=== PATIENT | male | born 1960 | race Caucasian/White ===

== ENCOUNTER 2016-08-03 20:32 | Inpatient (IN) | payer OTHER ==
[2016-08-03] MEDS ORDERED: Nitroglycerin TAB 0.4 MG* 0.4 MG TAB SL PRN (20:47)
[2016-08-03] MEDS ORDERED: Aspirin Low Dose CHEW TAB* 81 MG PO ONE (20:47)
[2016-08-03] MEDS ORDERED: Nitroglycerin TAB 0.4 MG* 0.4 MG TAB ONE (20:52)
[2016-08-03] MEDS ORDERED: Metoprolol Tartrate TAB* 25 MG PO ONE (20:58)
[2016-08-03] MEDS ORDERED: nitroGLYCERIN DRIP* 25,000 MCG in PREMIX* 0 ML IV ONE (21:08)
[2016-08-03 21:15] LABS: Hematocrit 44 % (42-52); Mean Corpuscular HGB Conc 34 g/dl (31-36); Mean Corpuscular Hemoglobin 31 pg (27-31); Mean Corpuscular Volume 90 fL (80-94); Mean Platelet Volume 8 um3 (7.4-10.4); Red Cell Distribution Width 13 % (10.5-15); White Blood Count 9.7 10^3/ul (3.5-10.8)
[2016-08-03] MEDS ORDERED: Heparin DRIP 25,000 UNITS(*) 25,000 UNITS/500 ML BAG IVPB SCH (21:15)
--- NOTE | 2016-08-03 21:20 | RAD ---
HISTORY: Chest pain COMPARISONS: None VIEWS:1: Single frontal portable view of the chest at 9:11 PM FINDINGS: LINES AND TUBES: None. CARDIOMEDIASTINAL SILHOUETTE: The cardiomediastinal silhouette is normal for portable technique. PLEURA: The costophrenic angles are sharp. No pleural abnormalities are noted. LUNG PARENCHYMA: The lungs are clear. ABDOMEN: The upper abdomen is clear. There is no subphrenic gas. BONES AND SOFT TISSUES: No bone or soft tissue abnormalities are noted. IMPRESSION: NO ACTIVE CARDIOPULMONARY DISEASE.
[2016-08-03] MEDS ORDERED: nitroGLYCERIN DRIP* 250 ML ONE (21:28)
[2016-08-03 21:31] LABS: Albumin 4.1 g/dL (3.2-5.2); BUN/Creatinine Ratio 18.6 (8-20); Calcium 9.5 mg/dL (8.6-10.3); EGFR African American 97.9 (>60); EGFR Non-African American 76.1 (>60); Globulin 3.3 g/dL (2-4); Potassium 3.4 mmol/L (3.5-5.0); Total Bilirubin 0.6 mg/dL (0.2-1.0); Total Protein 7.4 g/dL (6.4-8.9)
[2016-08-03] MEDS ORDERED: Heparin DRIP 25,000 UNITS(*) 25,000 UNITS/500 ML BAG ONE (21:31)
[2016-08-03] MEDS ORDERED: Heparin for STEMI(*) 5,000 UNITS/ML 1 ML VIAL IV ONE (21:32)
[2016-08-03 21:37] LABS: Troponin I 1.23 ng/mL (<0.04)
[2016-08-03] MEDS ORDERED: Heparin VIAL(*) 5000 UNITS/ML VIAL (FIVE THOUSAND) IV SCH (22:00)
[2016-08-03] MEDS ORDERED: Metoprolol Tartrate TAB* 25 MG PO SCH ×2 (22:00→23:00)
[2016-08-03] MEDS ORDERED: Ondansetron INJ* 2 MG/ML VIAL IV PRN (22:25)
[2016-08-03 22:53] LABS: Urine Bilirubin Negative (Negative); Urine Glucose Negative (Negative); Urine Nitrite Negative (Negative)
[2016-08-03 23:00] LABS: Albumin 3.7 g/dL (3.2-5.2); BUN/Creatinine Ratio 22.7 (8-20); EGFR African American 116.1 (>60); EGFR Non-African American 90.2 (>60); Globulin 3.1 g/dL (2-4); HDL Cholesterol 37.4 mg/dL; Potassium 3.5 mmol/L (3.5-5.0); Total Bilirubin 0.5 mg/dL (0.2-1.0); Total Protein 6.8 g/dL (6.4-8.9)
[2016-08-03 23:06] LABS: Troponin I 1.77 ng/mL (<0.04)
[2016-08-03] MEDS: Atorvastatin* 80 MG TAB PO SCH (23:55)
[2016-08-04 05:48] LABS: Hematocrit 39 % (42-52); Hemoglobin 13.2 g/dl (14.0-18.0); Mean Corpuscular HGB Conc 34 g/dl (31-36); Mean Corpuscular Hemoglobin 31 pg (27-31); Mean Corpuscular Volume 91 fL (80-94); Mean Platelet Volume 8 um3 (7.4-10.4); Red Blood Count 4.31 10^6/ul (4.0-5.4); Red Cell Distribution Width 13 % (10.5-15); White Blood Count 9.4 10^3/ul (3.5-10.8)
[2016-08-04 06:07] LABS: EGFR African American 113.1 (>60); EGFR Non-African American 87.9 (>60); HDL Cholesterol 36.6 mg/dL
[2016-08-04 06:15] LABS: Troponin I 5.07 ng/mL (<0.04)
--- NOTE | 2016-08-04 06:42 | HP ---
HISTORY AND PHYSICAL: DATE OF ADMISSION: 08/03/16 CHIEF COMPLAINT: Chest pain. HISTORY OF PRESENT ILLNESS: The patient is a 56-year-old gentleman who presented to [facility] with chief complaint of chest pain. He said Saturday, he was doing fine, did a bike ride for 40 minutes and was completely asymptomatic. However, Saturday, he just started feeling achy all over with a fever, but at that point had no chest pain or shortness of breath. though [place] the [place], he felt discomfort in his chest. The pain did not increase with any movement and it also went up to his shoulder and his left forearm. He went to a movie and by the time he got to the movie, the pain was resolved. He had no associated shortness of breath but he did have some nausea but no vomiting. He had some mild sweating with no palpitations. He went home but was very comfortable at night as per his significant other. He did not sleep much all night. In the morning, he developed chest pain again. He had it for hours and the pain increased about 4- 5/10 in severity, finally came to the ED. In the ED, the patient was shown to have an abnormal EKG which resolved with nitro, and an elevated troponin. He has a history of hypertension, hyperlipidemia, allergies, impaired glucose tolerance, and ulcerative colitis. MEDICATIONS: Include: 1. Lisinopril 20 mg daily. 2. Lipitor 10 mg daily. ALLERGIES: He has no known drug allergies. FAMILY HISTORY: Mother at 57 of an [place]. Father alive at 84, has CVA, diabetes mellitus, hypertension, and valve replacement. SOCIAL HISTORY: No tobacco. Wine with dinner. No recreational drug use. 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 He is not , but has a domestic partner, Frandy Jackson, is his healthcare proxy. He has 3 children. REVIEW OF SYSTEMS: A 14-point review of systems was completed with the patient. All pertinent positives and negatives are in the history of present illness, otherwise is negative. PHYSICAL EXAMINATION GENERAL: Pleasant gentleman, lying in bed, in no acute distress. VITAL SIGNS: Temperature is 98.4 degrees, heart rate is 82 beats per minute, pulse ox 94%, blood pressure 135/90, respiratory rate 18 breaths per minute. HEENT: Normocephalic, atraumatic. Pupils are equal, round, and reactive to light. Moist mucous membranes. NECK: Supple. No JVD, bruits, palpable thyroid, or lymphadenopathy. CHEST: Clear to auscultation and percussion bilaterally. CARDIOVASCULAR: S1, S2 appreciated. Regular rate and rhythm. ABDOMEN: Positive bowel sounds in all 4 quadrants. Soft, nontender, nondistended. EXTREMITIES: No cyanosis, clubbing, or edema. +2 peripheral pulses bilaterally. NEURO: Alert and oriented x3. Moves all extremities. SKIN: No rashes or abnormalities. DIAGNOSTIC STUDIES/LAB DATA: White count 9.7, hemoglobin 15, hematocrit 44, his platelets are 233. His sodium is 137, potassium 3.4, chloride 103, CO2 29, BUN 19, creat 1.02, his glucose is 167. His troponin is 1.23. His INR is 0.93. His urinalysis is unremarkable. His EKG showed initially normal sinus rhythm at 84 beats per minute with ST elevations in the inferior leads and some mild ST depressions in I and aVL and V2 through V6. After receiving nitro, his pain was much better and the ST depressions and ST elevations resolved. Chest x-ray, 08/03/16, impression: No active cardiopulmonary disease. ASSESSMENT AND PLAN: 1. Non-ST elevation myocardial infarction. Cardiology was called he did have some ST changes initially and that resolved. He was doing better, and felt since they resolved, it would be called a non-ST elevation myocardial infarction. The patient was admitted to the ICU on both nitro drip and heparin drip and his pain is essentially gone. We will continue to cycle his troponins. Cardiology will see him in the morning for likely cardiac catheterization. We will him start on beta minerva as well, metoprolol, aspirin 81 mg, and continue his other medications. We will increase his Lipitor to 80 mg. 2. Hypertension. Borderline control. Continue lisinopril and metoprolol now. 3. Hyperlipidemia. As above, I have increased his atorvastatin to 80 mg. 4. DVT prophylaxis, he will be on heparin drip. 5. The patient is a full code. TIME SPENT: Over 75 minutes was spent on this H and P, more than 40 minutes of which was spent in direct [id number] contact with the patient in evaluation, physical exam, counseling, and coordination of care. CC: Dr. Haney; Dr. Miranda* [id number]/[facility] #: [id number] [facility] HOSPITALShauna
[2016-08-04] MEDS ORDERED: Lisinopril TAB* 10 MG PO SCH (09:00)
[2016-08-04] MEDS ORDERED: Metoprolol Tartrate TAB* 25 MG PO SCH ×2 (09:00→14:00)
[2016-08-04] MEDS ORDERED: Aspirin EC Low Dose* 81 MG TAB.EC PO SCH (09:00)
[2016-08-04] MEDS ORDERED: Heparin(*) 1000 UNIT/ML 10 ML VIAL CATH LAB IV ONE (11:08)
[2016-08-04] MEDS ORDERED: Midazolam* 1 MG/ML 5 ML VIAL (5 MG) ONE (11:08)
[2016-08-04] MEDS ORDERED: Iohexol 350 (CONTRAST) 200 ML MDV IV ONE (11:08)
[2016-08-04] MEDS ORDERED: VERAPAMIL 2.5 MG/ML 4 ML VIAL ONE (11:08)
[2016-08-04] MEDS ORDERED: fentaNYL* 50 MCG/ML 2 ML VIAL (100 MCG VIAL) ONE (11:08)
[2016-08-04] MEDS ORDERED: Lidocaine 1% INJ* 10 MG/ML 30 ML SDV ONE (11:09)
[2016-08-04] MEDS ORDERED: Heparin 2 UNITS/ML IVPREMIX* 2,000 ML IV ONE (11:09)
[2016-08-04] MEDS ORDERED: nitroGLYCERIN DRIP* 250 ML ONE (11:09)
[2016-08-04] MEDS ORDERED: NS 0.9% 1000 ML* 1,000 ML IV SCH ×2 (12:45→13:45)
[2016-08-04] MEDS ORDERED: Enoxaparin(*) 100 MG/ML SYR SUBCUT SCH (14:00)
[2016-08-04] MEDS ORDERED: amLODIPine TAB* 5 MG PO SCH (14:00)
[2016-08-04] MEDS ORDERED: Nitroglycerin 0.4 MG/HR PATCH* (10 MG) TRANSDERM SCH (14:00)
--- NOTE | 2016-08-04 14:48 | PN ---
Subjective Date of Service: 08/04/16 Interval History: Mr. Moreno states that he feels fine this afternoon though he is a bit surprised by the sudden need for open heart surgery. He denies chest pain, SOB , nausea, or abdominal pain. Objective Active Medications: Amlodipine Besylate (Norvasc Tab*) 5 mg PO DAILY [facility] Aspirin (Aspirin Ec Low Dose*) 81 mg PO DAILY [facility] Atorvastatin Calcium (Lipitor*) 80 mg PO 1700 [facility] Enoxaparin Sodium (Lovenox(*)) 100 mg SUBCUT Q12H [facility] Sodium Chloride (Ns 0.9% 1000 Ml*) 1,000 mls @ 100 mls/hr IV .per rate [facility] Lisinopril (Prinivil Tab*) 20 mg PO DAILY [facility] Metoprolol Tartrate (Lopressor Tab*) 12.5 mg PO Q8H [facility] Nitroglycerin (Nitroglycerin 10 Mg Patch*) 1 patch TRANSDERM DAILY [facility] Ondansetron HCl (Zofran Inj*) 4 mg IV Q4H PRN Pharmacy Profile Note (Nitro Patch/Oint Remove*) 1 note PATCH OFF 2100 [facility] Vital Signs 08/03/16 08/03/16 08/03/16 22:30 23:00 23:01 Temperature 98.4 F Pulse Rate 81 82 82 Respiratory 16 Rate Blood Pressure 126/78 132/79 (mmHg) O2 Sat by Pulse 94 96 95 Oximetry 08/03/16 08/03/16 08/03/16 23:05 23:15 23:30 Temperature Pulse Rate 74 70 Respiratory 17 16 Rate Blood Pressure 132/79 127/79 116/70 (mmHg) O2 Sat by Pulse 96 95 Oximetry 08/03/16 08/04/16 08/04/16 23:47 00:00 00:01 Temperature Pulse Rate 53 60 Respiratory 14 18 18 Rate Blood Pressure 93/61 110/76 (mmHg) O2 Sat by Pulse 97 96 Oximetry 08/04/16 08/04/16 08/04/16 00:13 00:30 01:00 Temperature Pulse Rate 58 57 54 Respiratory 16 17 13 Rate Blood Pressure 110/76 107/68 105/64 (mmHg) O2 Sat by Pulse 97 95 97 Oximetry 08/04/16 08/04/16 08/04/16 01:30 02:00 02:30 Temperature Pulse Rate 49 50 50 Respiratory 16 15 15 Rate Blood Pressure 100/62 96/65 98/60 (mmHg) O2 Sat by Pulse 96 96 97 Oximetry 08/04/16 08/04/16 08/04/16 03:00 03:30 04:00 Temperature Pulse Rate 50 49 50 Respiratory 16 15 Rate Blood Pressure 95/60 91/58 90/55 (mmHg) O2 Sat by Pulse 96 95 95 Oximetry 08/04/16 08/04/16 08/04/16 04:30 05:00 05:30 Temperature 98.1 F Pulse Rate 51 50 50 Respiratory 10 17 Rate Blood Pressure 88/58 93/59 95/57 (mmHg) O2 Sat by Pulse 96 97 96 Oximetry 08/04/16 08/04/16 08/04/16 05:46 06:00 06:30 Temperature Pulse Rate 50 55 Respiratory 18 14 15 Rate Blood Pressure 95/64 94/61 (mmHg) O2 Sat by Pulse 97 97 Oximetry 08/04/16 08/04/16 08/04/16 07:00 07:30 07:35 Temperature 99.1 F Pulse Rate 73 64 Respiratory 17 18 Rate Blood Pressure 104/64 111/68 (mmHg) O2 Sat by Pulse 95 96 Oximetry 08/04/16 08/04/16 08/04/16 08:00 08:30 08:37 Temperature Pulse Rate 66 63 59 Respiratory 12 16 17 Rate Blood Pressure 111/67 109/69 110/70 (mmHg) O2 Sat by Pulse 96 96 95 Oximetry 08/04/16 08/04/16 08/04/16 09:00 10:00 10:30 Temperature Pulse Rate 65 53 54 Respiratory 15 13 16 Rate Blood Pressure 107/69 105/68 108/65 (mmHg) O2 Sat by Pulse 96 97 96 Oximetry 08/04/16 08/04/16 08/04/16 11:00 11:30 12:00 Temperature 99.4 F Pulse Rate 56 Respiratory 17 18 15 Rate Blood Pressure 109/66 120/72 109/71 (mmHg) O2 Sat by Pulse 95 Oximetry 08/04/16 08/04/16 08/04/16 12:30 12:41 13:38 Temperature Pulse Rate Respiratory 15 17 Rate Blood Pressure 120/72 109/65 (mmHg) O2 Sat by Pulse Oximetry 08/04/16 08/04/16 08/04/16 13:39 13:45 13:46 Temperature 99.5 F Pulse Rate 68 Respiratory 14 19 16 Rate Blood Pressure 105/74 (mmHg) O2 Sat by Pulse 92 Oximetry 08/04/16 08/04/16 08/04/16 13:59 14:00 14:15 Temperature 99.4 F 98 F Pulse Rate 64 Respiratory 16 19 Rate Blood Pressure 110/69 (mmHg) O2 Sat by Pulse 93 Oximetry 08/04/16 14:30 Temperature 98 F Pulse Rate Respiratory Rate Blood Pressure (mmHg) O2 Sat by Pulse Oximetry Oxygen Devices in Use Now: None Appearance: Male lying in bed in NAD Respiratory: Symmetrical Chest Expansion and Respiratory Effort, Clear to Auscultation Cardiovascular: NL Sounds; No Murmurs; No JVD, No Edema Abdominal: NL Sounds; No Tenderness; No Distention Extremities: No Edema Skin: No Rash or Ulcers Neurological: Alert and Oriented x 3, NL Muscle Strength and Tone Nutrition: Taking PO's Result Diagrams: 08/04/16 05:40 08/04/16 05:40 Microbiology and Other Data: Microbiology 08/03/16 23:35 Nasal Screen MRSA (PCR)([facility]) - Final Nasal Mrsa Negative Assess/Plan/Problems-Billing Assessment: /Mr. Moreno is a 56 yo male with a PMH of ulcerative colitis, htn, and hld who was admitted on 08/03/16 with NSTEMI. - Patient Problems (1) NSTEMI (non-ST elevated myocardial infarction) Comment: Trops peaked at 5.07. Cardiac cath found three vessel disease. Plan for transfer to [facility] for CABG. Continue aspirin, atorvastatin, metoprolol and lovenox. Status and Disposition: Inpatient. Transfer to [facility] for anticipated CABG.
[2016-08-04] MEDS: Atorvastatin* 80 MG TAB PO SCH (16:49)
[2016-08-04] MEDS ORDERED: nitroGLYCERIN DRIP* 25,000 MCG in PREMIX* 0 ML IV SCH (17:00)
[2016-08-04 17:22] VITALS: BP 113/70
--- NOTE | 2016-08-04 17:52 | DS ---
TRANSFER SUMMARY: DATE OF ADMISSION: 08/03/16 DATE OF DISCHARGE: 08/04/16 PRIMARY CARE PHYSICIAN: Dr. Haney. ATTENDING PHYSICIAN: Dr. Shabana Christopher* (dictation provided by Pau Christiansen NP) . PRIMARY DIAGNOSIS: Non ST-elevation myocardial infarction with 3-vessel coronary artery disease. SECONDARY DIAGNOSES: 1. Hypertension. 2. Hyperlipidemia. 3. Ulcerative colitis. MEDICATIONS AT THE TIME OF DISCHARGE: 1. Aspirin 81 mg p.o. daily. 2. Atorvastatin 80 mg p.o. daily. 3. Lovenox 100 mg subcutaneously q.12 hours. 4. Lisinopril 20 mg p.o. daily. 5. Metoprolol tartrate 12.5 mg p.o. q.8 hours. 6. Nitroglycerin patch 0.4 mg an hour. 7. Amlodipine 5 mg p.o. daily. HOSPITAL COURSE: Mr. Moreno is a 56-year-old male with past medical history of hypertension and hyperlipidemia, who presents to the hospital on 08/03/16 with concern for chest pain. Please see the dictated H and P from Sabino Reed MD for complete details. In brief, the patient had had some very mild discomfort on the left side of the chest associated with some shortness of breath while walking on the [employer]. This seemed to resolve with rest. The following day, he again noticed that he was having discomfort with activity. He has a very strong positive family history with his mother having an VT at 57. He came to the emergency room for evaluation and was found to have a first troponin of 1.23. His EKG showed ST depressions in V2, V3, V4, V5, and V6. The patient was admitted for non-ST elevation VT. Mr. Moreno had repeat troponins that peaked at 5.07. He went on for cardiac catheterization with Parvin Miranda MD, who found that the patient had severe multivessel coronary artery disease. Dr. Miranda spoken with Dr. Arevalo at [facility] and plans are for the patient to be transferred for likely coronary artery bypass graft. Mr. Moreno is stable at this point. He has no chest pain. He is resting comfortably in the bed. His vitals are stable. DISPOSITION: To [facility]. ACTIVITIES: Bed rest. FOLLOWUP PLANS: Please followup with Dr. Haney when you return from [facility]. TIME SPENT: Approximately, 40 minutes was spent on discharge of this patient; more than half the time was spent with the patient at the bedside reviewing the events leading up to this hospitalization, performing the physical examination, and reviewing my plan of care. PAU CHRISTIANSEN NP CC: Dr. Haney* [id number]/[facility] #: [id number] VINCE
[2016-08-04] MEDS ORDERED: Nitro Patch/OINT Remove PATCH OFF SCH (21:00)
--- NOTE | 2016-08-04 22:59 | CONS ---
CC: Dr. Haney, Dr. Miranda; Dr. Arevalo, [facility] INTERVENTIONAL CARDIOLOGY CONSULT NOTE: DATE OF CONSULT: 08/04/16 PRIMARY CARE PHYSICIAN: Dr. Haney. HISTORY OF PRESENT ILLNESS: A 56-year-old male presenting with non-ST elevation infarct. He is an excellent historian, has a strong family history of coronary artery disease, but has been a symptomatic. He has been cycling. A few days ago while walking on the [employer], he had precordial c hest tightness with radiation to the left shoulder, which resolved with rest, that was his first epi sode. Subsequently, he has had fairly predictable class 2 to 3 angina. Yesterday, he had an episod e at rest that resolved in the ER with IV nitroglycerin after sublingual nitroglycerin. He has been pain free here, has no history of heart failure symptoms, palpitations, or syncope. He has not been on aspirin regularly. 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 PREHOSPITAL MEDICATIONS: 1. Lisinopril 20 mg daily. 2. Lipitor 10 mg daily. ALLERGIES: None to medications. FAMILY HISTORY: Positive for premature coronary disease. 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 He has a significant other. He is a nonsmoker. REVIEW OF SYSTEMS: General: No weight loss. No fevers. FILBERT GROWER: No history of TIA or CVA. GI: No peptic ulcer disease or bleeding. Circulatory: No claudication. Remainder all negative. PHYSICAL EXAMINATION: BP 109/66, heart rate in the 60 to 70s, sinus rhythm, no ectopy. His lungs a re clear to percussion and auscultation. Neck: JVP and carotids are normal. No bruits. HEENT is unremarkable without xanthelasma, scleral injection, or jaundice. EOMs normal. Cranial nerves kumar sly intact. Cardiac Exam: Chest wall is nontender, normal heart sounds, no gallop, no murmur, no ru b. Abdomen: Soft, nontender. No bruit, aorta is not palpable. Liver is not palpable, he has no b ruits. Femoral pulses are 2+. Extremities: Radial pulses 2+, pedal pulses 2+. He has no cyanosis , clubbing, or edema. Skin is warm and perfused. DIAGNOSTIC STUDIES/LABS: Troponin is 1.23, 1.77, 5.07, not yet peaked. BMP is notable for random b lood sugar of 167. CBC is normal. EKG on presentation showed inferolateral ST depression, which re solved with medical treatment. EKG this morning shows minimal T-wave flattening inferolaterally. H e has nondiagnostic inferior Q-waves, relatively early transition V1, V2. Chest x-ray by my review, portable film shows normal heart size, no heart failure, no infiltrate. IMPRESSION: 1. Inferolateral non-ST elevation infarct, he stabilized with medical therapy. He is undergoing ca theterization this morning. We have discussed the procedure, the potential need for revascularizati on with stenting, procedure risks. 2. Hyperglycemia. Hemoglobin A1c is pending. 3. Hypertension. Controlled 4. Hyperlipidemia. He is on low dose Lipitor, with an LDL on admission of 128. He has been started on high dose Lipitor. 5. History of ulcerative colitis. Historically quiescent for many years. Thanks for the consultation. I will follow with you as needed. [id number]/[facility] #: [id number]
== END 2016-08-04 18:18 | disposition short-term general hospital (02) | DRG 282 ==
LOC: ED 20:32 → ICU 22:25
PROVIDERS: ADMIT Internal Medicine; ATTEND Hospitalist
PROC: B2151ZZ Fluoroscopy of Left Heart using Low Osmolar Contrast (ICD-10-PCS; 2016-08-04)
PROC: 4A023N7 Measurement of Cardiac Sampling and Pressure, Left Heart, Percutaneous Approach (ICD-10-PCS; 2016-08-04)
PROC: B2111ZZ Fluoroscopy of Multiple Coronary Arteries using Low Osmolar Contrast (ICD-10-PCS; principal; 2016-08-04 12:30)
DX: I21.4 Non-ST elevation (NSTEMI) myocardial infarction (principal); I10 Essential (primary) hypertension; E74.39 Other disorders of intestinal carbohydrate absorption; I25.10 Atherosclerotic heart disease of native coronary artery without angina pectoris; E78.5 Hyperlipidemia, unspecified; Z79.82 Long term (current) use of aspirin; Z82.49 Family history of ischemic heart disease and other diseases of the circulatory system; Z82.3 Family history of stroke; Z83.3 Family history of diabetes mellitus; R73.9 Hyperglycemia, unspecified
CPT/HCPCS: 36415; 71010; 80053; 80061; 81003; 82550; 82553; 82565; 83036; 83721; 83874; 83880; 84484; 84520; 85025; 85027; 85610; 85730; 87641; 93005; 93458; A9270-GY; C1887; J1644; J1650; J2001; J2250; J3010